=== PATIENT | female | born 1980 | race Caucasian/White ===

== ENCOUNTER 2019-04-13 16:07 | Inpatient (IN) ==
[2019-04-13 17:00] LABS: URINE SAMPLE TYPE CLEAN CATCH URINE; URINE SPECIFIC GRAVITY - MAN 1.016
[2019-04-13 17:01] LABS: TRICYCLIC ANTIDEPRESSANT,URINE NEGATIVE (NEG)
[2019-04-13 17:02] LABS: CANNABINOID SCREEN,URINE NEGATIVE (NEG); COCAINE SCREEN NEGATIVE (NEG); METHADONE URINE SCREEN NEGATIVE (NEG)
[2019-04-13] MEDS ORDERED: TERBUTALINE SULFATE 1 MG/1 ML SDV SUBCUT PRN (17:10)
[2019-04-13] MEDS ORDERED: fentaNYL Inj 100 MCG/2 ML VIAL IV PRN (17:10)
[2019-04-13] MEDS ORDERED: METHYLERGONOVINE MALEATE 0.2 MG/1 ML VIAL IM PRN (17:10)
[2019-04-13] MEDS ORDERED: Naloxone Inj 0.01 MG in Sodium Chloride 0.9% vial 1 ML IVP PRN (17:10)
[2019-04-13] MEDS ORDERED: Lidocaine 1% 10 MG/ML - 20 ML VIAL SUBCUT PRN (17:10)
[2019-04-13] MEDS ORDERED: CALCIUM CARBONATE 500 MG (TUMS) CHEWABLE TABLET PO PRN (17:10)
[2019-04-13] MEDS ORDERED: OXYTOCIN 10 UNIT/1 ML IM PRN (17:10)
[2019-04-13] MEDS ORDERED: Carboprost Inj 250 MCG/ML AMP IM PRN (17:10)
[2019-04-13] MEDS ORDERED: CITRIC ACID/SODIUM CITRATE 30 ML CUP PO PRN (17:10)
[2019-04-13] MEDS ORDERED: NALOXONE 0.4 MG/1 ML VIAL IVP PRN (17:10)
[2019-04-13] MEDS ORDERED: BUTORPHANOL TARTRATE 2 MG/1 ML VIAL IVP PRN (17:10)
[2019-04-13] MEDS ORDERED: Nalbuphine Inj 20 MG/ML Ampule IVP PRN (17:10)
[2019-04-13] MEDS ORDERED: diphenhydrAMINE 50 MG/1 ML VIAL IVP PRN (17:10)
[2019-04-13] MEDS ORDERED: CefOXitin Inj 2 GM in Sodium Chloride 0.9% 100 ML IV PRN (17:10)
[2019-04-13] MEDS ORDERED: LIDOCAINE W/ SODIUM BICARB 0.5 ML SYR SUBD PRN (17:10)
[2019-04-13] MEDS ORDERED: Metoclopramide Inj 10 MG/2 ML VIAL IV PRN (17:10)
[2019-04-13] MEDS ORDERED: Phenylephrine Inj 50 MCG in Sodium Chloride 0.9% vial 0.5 ML IVP PRN (17:10)
[2019-04-13] MEDS ORDERED: LIDOCAINE HCL 2 % 10 ML JELLY URO-JECT TOPICAL PRN (17:10)
[2019-04-13] MEDS ORDERED: MISOPROSTOL 200 MCG TABLET RECTAL PRN (17:10)
[2019-04-13] MEDS ORDERED: ONDANSETRON 4 MG/2 ML VIAL IVP PRN (17:10)
[2019-04-13] MEDS ORDERED: FAMOTIDINE 20 MG/2 ML VIAL IVP PRN ×2 (17:10)
[2019-04-13] MEDS ORDERED: Lactated Ringers-OB Dept 1,000 ML PRIMARY IV SCH (17:15)
[2019-04-13] MEDS ORDERED: Oxytocin 20 Units + LR 20 UNIT/1,000 ML BAG IV SCH (17:15)
[2019-04-13 18:00] LABS: Hematocrit [HCT] 30.6 % (37.0-47.0); Hemoglobin [HGB] 10.3 g/dL (12.0-16.0); RED BLOOD COUNT 3.44 10^6/uL (4.20-5.40)
[2019-04-13 18:01] LABS: BASOPHILS # (AUTO) 0.03 10*3/UL; BASOPHILS % (AUTO) 0.3 % (0-1); EOSINOPHILS # (AUTO) 0.06 10*3/UL; EOSINOPHILS % (AUTO) 0.5 % (0-8); LYMPHOCYTES # (AUTO) 2.19 10*3/uL; MEAN CORPUSCULAR HGB CONC 33.7 g/dL (33-37); MEAN PLATELET VOLUME 11.6 FL (7.4-12.2); MONOCYTES # (AUTO) 0.95 10*3/UL (0.3-0.8); MONOCYTES % (AUTO) 8.2 % (5-15); NEUTROPHILS # (AUTO) 8.29 10*3/UL; NEUTROPHILS % (AUTO) 71.5 % (50-80)
[2019-04-13 18:03] LABS: PLATELET MORPHOLOGY COMMENT NORMAL MORPHOLOGY (NORM); RBC MORPHOLOGY COMMENT NORMAL MORPHOLOGY (NORM); WBC MORPHOLOGY COMMENT NORMAL MORPHOLOGY (NORM)
[2019-04-13 18:49] LABS: HIV ANTIBODY NEGATIVE (N); HIV-1 P24 ANTIGEN NEGATIVE (N)
[2019-04-13 21:18] VITALS: O2SAT 97
[2019-04-13 21:24] VITALS: BP 111/70; RESP 17; TEMP 98
[2019-04-16 14:21] LABS: HEPATITIS B SURFACE AG Negative (Negative)
[2019-04-22 12:48] LABS: AMPHETAMINE SCREEN POSITIVE (NEG); OPIATE SCREEN,URINE POSITIVE (NEG)
[2019-04-22 12:49] LABS: METHAMPHETAMINES SCREEN,URINE POSITIVE (NEG)
== END 2019-04-13 21:04 | disposition short-term general hospital (02) | DRG 833 ==
LOC: OBOP 16:07 → OBIP 17:10 → MERGE 17:10
PROVIDERS: ADMIT Obstetrics & Gynecology; ATTEND Obstetrics & Gynecology